=== PATIENT | female | born 1970 | race Caucasian/White ===

== ENCOUNTER 2021-02-03 21:45 | Emergency (ER) | payer SELFPAY ==
[~2021-02-03] VITALS: Ht 152.4 cm; Wt 86.2 kg
[2021-02-03] MEDS ORDERED: OZEMPIC (21:59)
--- NOTE | 2021-02-03 22:05 | NUR ---
Patient arrive at the ER with c/o of chest pain since 1599 today.
--- NOTE | 2021-02-03 22:08 | NUR ---
Dr. Laura at bedside for MSE.
[2021-02-03] MEDS ORDERED: MORPHINE SULFATE 4 MG/1 ML DISP.SYRIN IV ONE (22:15)
[2021-02-03] MEDS ORDERED: IV NORMAL SALINE 500 ML BAG IV ONE (22:15)
[2021-02-03] MEDS ORDERED: ONDANSETRON 4 MG/2 ML VIAL IV ONE (22:15)
[2021-02-03 22:26] LABS: HEMATOCRIT 42.8 % (31.2-41.9); MEAN CORPUSCULAR HEMOGLOBIN 30.9 uug (24.7-32.8); MEAN CORPUSCULAR VOLUME 88.7 fL (75.5-95.3); PLATELET COUNT (AUTO) 299 K/uL (179-408)
[2021-02-03] MEDS ORDERED: ONDANSETRON 4 MG/2 ML VIAL ONE (22:27)
[2021-02-03] MEDS ORDERED: MORPHINE SULFATE 4 MG/1 ML DISP.SYRIN ONE (22:27)
[2021-02-03 22:36] LABS: CREATININE 0.9 mg/dL (0.6-1.3); POTASSIUM 3.8 mmol/L (3.5-5.1)
[2021-02-03] MEDS ORDERED: ACETAMINOPHEN 325 MG TABLET ONE (23:11)
[2021-02-03] MEDS ORDERED: ACETAMINOPHEN 325 MG TABLET PO ONE (23:15)
[2021-02-04] MEDS ORDERED: KETOROLAC TROMETHAMINE 15 MG INJ IVP ONE
[2021-02-04] MEDS ORDERED: KETOROLAC TROMETHAMINE 15 MG INJ ONE (00:03)
[2021-02-04] MEDS ORDERED: ASPI81TA31 PO (01:45)
[2021-02-04 02:08] VITALS: BP 107/70
--- NOTE | 2021-02-04 02:08 | NUR ---
Patient discharged to home in stable condition. Written and verbal after care instructions given. Patient verbalizes understanding of instructions. Stressed follow up or return to ER for worsening s/s. All belongings with patient.
== END 2021-02-04 02:09 | disposition home or self-care (01) ==
LOC: ER 22:00
DX: R07.9 Chest pain, unspecified (principal); F17.210 Nicotine dependence, cigarettes, uncomplicated; Z83.3 Family history of diabetes mellitus; Z82.49 Family history of ischemic heart disease and other diseases of the circulatory system; E11.9 Type 2 diabetes mellitus without complications; Z79.82 Long term (current) use of aspirin
CPT/HCPCS: 36415 ×2; 71045; 80048; 83880; 84484 ×2; 85025; 93005 ×2; 96374; 96375; 99285; 99406; J1885; J2270; J2405; 70030-TC; J7040